=== PATIENT | female | born 1990 | race Hispanic/Latino ===

== ENCOUNTER 2020-06-01 05:33 | Inpatient (IN) | payer MEDICAID ==
[2020-06-01] VITALS (14 sets, daily range): BP systolic 90–120; BP diastolic 50–71
[~2020-06-01] VITALS: Ht 157.5 cm; Wt 91.6 kg
[2020-06-01] MEDS ORDERED: CEFAZOLIN SODIUM 1 GM VIAL IVP PRN (05:45)
[2020-06-01] MEDS ORDERED: LACTATED RINGERS 1000ML 1,000 ML IV SCH (05:45)
[2020-06-01] MEDS ORDERED: CALDOLOR 800MG+NS 250ML 250 ML IV PRN (05:45)
[2020-06-01] MEDS ORDERED: LACTATED RINGERS 1000ML 1,000 ML IV ONE (05:48)
[2020-06-01] MEDS ORDERED: CLINDAMYCIN IVPB 900MG/50ML 50 ML IVPB PRN (06:00)
[2020-06-01] MEDS ORDERED: GENTAMICIN SULFATE 240 MG in 0.9%NACL 100ML 100 ML IV PRN (06:00)
[2020-06-01 07:07] LABS: MEAN CORPUSCULAR HEMOGLOBIN 29.4 pg (27.0-33.0); MEAN CORPUSCULAR HGB CONC 32.6 g/dL (32.0-36.0); MEAN CORPUSCULAR VOLUME 89.9 fL (79-99); RED BLOOD CELL COUNT(AUTO) 3.78 MIL/uL (4.00-5.50); RED CELL DISTRIBUTION WIDTH 14.8 % (11.0-15.5); WHITE BLOOD COUNT (AUTO) 8.8 K/uL (4.8-10.8)
[2020-06-01] MEDS ORDERED: PROPOFOL 10 MG/ML 20ML VIAL IV ONE (07:17)
[2020-06-01] MEDS ORDERED: MORPHINE PF 100MG/10ML AMP IV ONE (07:17)
[2020-06-01] MEDS ORDERED: LIDOCAINE PF 100MG/5ML (2%) SYRINGE 5ML ONE (07:17)
[2020-06-01] MEDS ORDERED: FENTANYL CITRATE PF 50 MCG/1 ML 2ML VIAL ONE (07:17)
[2020-06-01] MEDS ORDERED: SUCCINYLCHOLINE CHLORIDE 20 MG/ML 10 ML VIAL ONE (07:17)
[2020-06-01] MEDS ORDERED: KETAMINE 50MG/ML SYRINGE 50 MG/ML DISP.SYRIN IV ONE (07:28)
[2020-06-01] MEDS ORDERED: GENTAMICIN PROTOCOL PER PHARMACY IV ONE (07:50)
[2020-06-01] MEDS ORDERED: OXYTOCIN 10 UNIT/1ML 10ML VIAL ONE (07:59)
[2020-06-01] MEDS ORDERED: ONDANSETRON 4MG INJ ONE (08:34)
[2020-06-01] MEDS ORDERED: PHENYLEPHRINE HCL 10 MG/ML 1ML VIAL IV ONE (08:34)
[2020-06-01] MEDS ORDERED: OXYTOCIN-LR 20 UNITS/1000 ML 1,000 ML IV PRN (08:45)
[2020-06-01] MEDS ORDERED: 0.9%NACL 10ML VIAL IVP PRN (08:45)
[2020-06-01] MEDS ORDERED: PROMETHAZINE HCL 25 MG/ML 1ML AMPULE IM PRN (08:45)
[2020-06-01] MEDS ORDERED: MEPERIDINE-PF 75 MG/ML SYG IM PRN (08:45)
[2020-06-01] MEDS ORDERED: NALOXONE HCL 0.4 MG/1 ML ML IVP PRN (09:00)
[2020-06-01] MEDS ORDERED: DiphenhydrAMINE HCL 50 MG/ML VIAL IVP PRN (09:00)
[2020-06-01] MEDS ORDERED: EPHEDRINE SULFATE 50 MG/ML AMPULE IVP PRN (09:00)
[2020-06-01] MEDS ORDERED: PREN-154 PO (09:31)
[2020-06-01] MEDS: ONDANSETRON 4MG INJ IVP PRN ×2 (09:40→13:15)
[2020-06-01] MEDS: MORPHINE 2 MG SYG IVP PRN ×2 (10:31→13:24)
[2020-06-01] MEDS: DEXTROSE 5 %-0.45 % NACL 1,000 ML IV PRN (16:12)
[2020-06-01 16:25] LABS: AMPHET/METH SCREEN,URINE NEGATIVE (NEGATIVE); BARBITURATE SCREEN, URINE NEGATIVE (NEGATIVE); BENZODIAZEPINES SCREEN,URINE NEGATIVE (NEGATIVE); CANNABINOID SCREEN,URINE NEGATIVE (NEGATIVE); COCAINE SCREEN,URINE NEGATIVE (NEGATIVE); OPIATE SCREEN,URINE POSITIVE (NEGATIVE); PHENCYCLIDINE SCREEN,URINE NEGATIVE (NEGATIVE)
[2020-06-01] MEDS: CALDOLOR 800MG+NS 250ML 250 ML IV SCH (16:43)
[2020-06-01] MEDS ORDERED: ACETAMINOPHEN 500 MG TABLET PO PRN (20:45)
[2020-06-01] MEDS ORDERED: LANOLIN 30GM OINTMENT TP PRN (20:45)
[2020-06-01] MEDS ORDERED: BISACODYL 10 MG SUPP.RECT RC PRN (20:45)
[2020-06-01] MEDS: DOCUSATE SODIUM 100 MG CAP PO SCH (21:00)
[2020-06-02] MEDS: CALDOLOR 800MG+NS 250ML 250 ML IV SCH (00:36)
[2020-06-02] MEDS: DEXTROSE 5 %-0.45 % NACL 1,000 ML IV PRN (00:43)
[2020-06-02 03:28] VITALS: BP 92/66
[2020-06-02 06:19] LABS: HEMATOCRIT 26.9 % (36-48); MEAN CORPUSCULAR HEMOGLOBIN 28.9 pg (27.0-33.0); MEAN CORPUSCULAR HGB CONC 32.3 g/dL (32.0-36.0); MEAN CORPUSCULAR VOLUME 89.4 fL (79-99); RED BLOOD CELL COUNT(AUTO) 3.01 MIL/uL (4.00-5.50); RED CELL DISTRIBUTION WIDTH 14.6 % (11.0-15.5); WHITE BLOOD COUNT (AUTO) 7.1 K/uL (4.8-10.8)
[2020-06-02 07:17] VITALS: BP 93/46
[2020-06-02] MEDS: DOCUSATE SODIUM 100 MG CAP PO SCH ×2 (07:59→21:26)
[2020-06-02] MEDS: SIMETHICONE 80 MG TAB.CHEW PO PRN ×3 (07:59→21:25)
[2020-06-02] MEDS: HYDROCODONE/ACETAMINOPHEN 5/325 MG TAB PO PRN ×2 (08:00→21:28)
[2020-06-02] MEDS: IBUPROFEN 800 MG TAB PO SCH ×2 (09:15→16:05)
[2020-06-02 10:12] LABS: HEPATITIS Bs ANTIGEN SCREEN P Negative (Negative)
[2020-06-02 11:18] VITALS: BP 104/56
[2020-06-02] MEDS: ACETAMINOPHEN WITH CODEINE 1 TAB TAB PO PRN (13:45)
[2020-06-02 16:08] VITALS: BP 107/59
[2020-06-02 20:30] VITALS: BP 98/49
[2020-06-02 23:50] VITALS: BP 121/53
[2020-06-03] MEDS: IBUPROFEN 800 MG TAB PO SCH ×2 (00:45→09:12)
[2020-06-03 03:43] VITALS: BP 111/69
[2020-06-03] MEDS: ACETAMINOPHEN WITH CODEINE 1 TAB TAB PO PRN (05:37)
[2020-06-03 07:15] VITALS: BP 116/60
[2020-06-03] MEDS: DOCUSATE SODIUM 100 MG CAP PO SCH (08:50)
[2020-06-03] MEDS: SIMETHICONE 80 MG TAB.CHEW PO PRN (08:50)
[2020-06-03 11:19] VITALS: BP 120/66
== END 2020-06-03 15:20 | disposition home or self-care (01) | DRG 540 ==
LOC: LDH 05:33 → WSH 10:50
PROVIDERS: ADMIT Obstetrics & Gynecology; ATTEND Obstetrics & Gynecology
PROC: 0U550ZZ Destruction of Right Fallopian Tube, Open Approach (ICD-10-PCS; 2020-06-01)
PROC: 10D00Z1 Extraction of Products of Conception, Low, Open Approach (ICD-10-PCS; principal; 2020-06-01 08:00)
DX: O34.211 Maternal care for low transverse scar from previous cesarean delivery (principal); Z20.822 Contact with and (suspected) exposure to COVID-19; O99.62 Diseases of the digestive system complicating childbirth; K21.9 Gastro-esophageal reflux disease without esophagitis; O99.214 Obesity complicating childbirth; E66.9 Obesity, unspecified; N83.8 Other noninflammatory disorders of ovary, fallopian tube and broad ligament; Z3A.39 39 weeks gestation of pregnancy; Z37.0 Single live birth; Z88.0 Allergy status to penicillin
CPT/HCPCS: 36415; 59510; 80305; 85027; 86592; 86850; 86900; 86901; 87340; A4344; G0378; J0330; J1741; J2001; J2274; J2370; J2405; J2590; J2704; J3010; J3490; J7120; U0003